=== PATIENT | male | born 1995 | race American Indian/Alaskan Native ===

== ENCOUNTER 2021-06-19 10:52 | Emergency (ER) | payer SELFPAY ==
[2021-06-19] MEDS ORDERED: ZIPRASIDONE MESYLATE 20 MG VIAL IM ONE ×2 (11:01→11:04)
[2021-06-19] MEDS ORDERED: LORazepam 2 MG/ML VIAL IM ONE (11:01)
[2021-06-19] MEDS ORDERED: TETANUS,DIPH,PERTUSS(ACELL) VACCINE 0.5 ML SYRINGE IM ONE (11:01)
--- NOTE | 2021-06-19 11:15 | Emergency Department Report ---
ED Altered Mental Status HPI - General Chief Complaint: Altered Mental Status Stated Complaint: HEAD INJURY/AMS/ IN CUSTODY Time Seen by Provider: 06/19/21 11:01 Source: police Mode of arrival: Ambulatory Limitations: Altered Mental Status - History of Present Illness Initial Comments: 25-year-old male presents to ED for evaluation. Patient was found inside an apartment that was under construction. Patient was found by construction workers. Patient apparently had a hammer in his hand and started banging on the countertops. Police was called. Patient left the apartment and went outside. He was chasing a car with the hammer and his hand. Patient also hit himself in the head multiple times with the hammer. tactical/mobile watch officer reports patient has had previous arrest in the past for trespassing. Patient was found in a [employer] parking lot asleep with a Bible in someone else's car. Unknown if patient has previous psychiatric diagnosis. MD Complaint: altered mental status -: unknown Severity: severe Consistency of Symptoms: constant Context: unknown - Related Data Allergies Allergy/AdvReac Type Severity Reaction Status Date / Time No Known Allergies Allergy Verified 06/20/21 13:27 ED Review of Systems ROS: Stated complaint: HEAD INJURY/AMS/ IN CUSTODY Other details as noted in HPI Comment: Unobtainable due to pts medical conditions ED Physical Exam - General Limitations: Altered Mental Status General appearance: alert - Head Head exam: Present: other (Contusions present to forehead with superficial laceration, approx 3 cm, in the middle of forehead) - Eye Eye exam: Present: normal appearance, PERRL, EOMI - ENT ENT exam: Present: mucous membranes moist - Neck Neck exam: Present: normal inspection - Respiratory Respiratory exam: Present: normal lung sounds bilaterally. Absent: respiratory distress - Cardiovascular Cardiovascular Exam: Present: normal rhythm, tachycardia - GI/Abdominal GI/Abdominal exam: Present: soft. Absent: distended - Extremities Exam Extremities exam: Present: normal inspection - Neurological Exam Neurological exam: Present: alert, altered, other (Moves all extremities) - Psychiatric Psychiatric exam: Present: agitated - Skin Skin exam: Present: warm, dry, intact, normal color ED Course Vital Signs 06/19/21 06/19/21 06/19/21 11:04 11:16 12:22 Temperature Pulse Rate Respiratory Rate Blood Pressure 123/89 151/78 114/60 Blood Pressure [Right] O2 Sat by Pulse 100 100 Oximetry 06/19/21 06/19/21 06/20/21 12:24 20:12 02:10 Temperature 98.6 F 98.7 F 98.4 F Pulse Rate 86 60 Respiratory 18 16 Rate Blood Pressure Blood Pressure 111/63 107/66 [Right] O2 Sat by Pulse 100 99 Oximetry 06/20/21 06/20/21 09:02 11:08 Temperature 97.6 F Pulse Rate 68 Respiratory 16 16 Rate Blood Pressure Blood Pressure 122/75 [Right] O2 Sat by Pulse 100 100 Oximetry - Reevaluation(s) Reevaluation #1: 06/19/21 11:15 Patient not answering any questions. He was yelling and screaming "superman" and "Gabino." Unsure if he is speaking in another language, however some words are not recognizable. Patient given Geodon and Ativan for agitation. - Laceration /Wound Repair Face Wound Location: face Wound Length (cm): 3 Wound's Depth, Shape: superficial Wound Explored: clean Irrigated w/ Saline (ccs): 30 Wound Repaired With: Dermabond Layer Closure?: No Sterile Dressing Applied?: No - Lab Data Result diagrams: 06/19/21 11:34 06/19/21 11:34 Lab Results 06/19/21 06/19/21 06/19/21 Range/Units 08:38 11:34 11:34 WBC 5.2 (4.5-11.0) K/mm3 RBC 5.19 H (3.65-5.03) M/mm3 Hgb 13.5 (11.8-15.2) gm/dl Hct 41.1 (35.5-45.6) % MCV 79 L (84-94) fl MCH 26 L (28-32) pg MCHC 33 (32-34) % RDW 15.3 H (13.2-15.2) % Plt Count 276 (140-440) K/mm3 Lymph % (Auto) 20.6 (13.4-35.0) % [place] % (Auto) 8.9 H (0.0-7.3) % Eos % (Auto) 1.0 (0.0-4.3) % Baso % (Auto) 0.7 (0.0-1.8) % Lymph # (Auto) 1.1 L (1.2-5.4) K/mm3 [place] # (Auto) 0.5 (0.0-0.8) K/mm3 Eos # (Auto) 0.0 (0.0-0.4) K/mm3 Baso # (Auto) 0.0 (0.0-0.1) K/mm3 Seg Neutrophils % 68.8 (40.0-70.0) % Seg Neutrophils # 3.6 (1.8-7.7) K/mm3 Sodium 142 (137-145) mmol/L Potassium 3.4 L (3.6-5.0) mmol/L Chloride 101.1 (98-107) mmol/L Carbon Dioxide 20 L (22-30) mmol/L Anion Gap 24 mmol/L BUN 6 L (9-20) mg/dL Creatinine 1.0 (0.8-1.3) mg/dL Estimated GFR > 60 ml/min BUN/Creatinine Ratio 6 % Glucose 134 H (75-100) mg/dL Calcium 9.9 (8.4-10.2) mg/dL Total Bilirubin 0.60 (0.1-1.2) mg/dL Direct Bilirubin < 0.2 (0-0.2) mg/dL Indirect Bilirubin 0.4 mg/dL AST 20 (5-40) units/L ALT 11 (7-56) units/L Alkaline Phosphatase 66 (35-129) units/L Total Protein 7.7 (6.3-8.2) g/dL Albumin 4.8 (3.9-5) g/dL Albumin/Globulin Ratio 1.7 % Urine Color (Yellow) Urine Turbidity (Clear) Urine pH (5.0-7.0) Ur Specific [place] (1.003-1.030) Urine Protein (Negative) mg/dL Urine Glucose (UA) (Negative) mg/dL Urine Ketones (Negative) mg/dL Urine Blood (Negative) Urine Nitrite (Negative) Urine Bilirubin (Negative) Urine Urobilinogen (<2.0) mg/dL Ur Leukocyte Esterase (Negative) Urine WBC (Auto) (0.0-6.0) /HPF Urine RBC (Auto) (0.0-6.0) /HPF U Epithel Cells (Auto) (0-13.0) /HPF Urine Mucus /HPF Salicylates (2.8-20.0) mg/dL Urine Opiates Screen Urine Methadone Screen Acetaminophen (10.0-30.0) ug/mL Ur Barbiturates Screen Ur Phencyclidine Scrn Ur Amphetamines Screen U Benzodiazepines Scrn Urine Cocaine Screen U Marijuana (THC) Screen Drugs of Abuse Note Plasma/Serum Alcohol (0-0.07) % Coronavirus (PCR) Negative (Negative) 06/19/21 06/19/21 06/19/21 Range/Units 11:34 11:34 11:34 WBC (4.5-11.0) K/mm3 RBC (3.65-5.03) M/mm3 Hgb (11.8-15.2) gm/dl Hct (35.5-45.6) % MCV (84-94) fl MCH (28-32) pg MCHC (32-34) % RDW (13.2-15.2) % Plt Count (140-440) K/mm3 Lymph % (Auto) (13.4-35.0) % [place] % (Auto) (0.0-7.3) % Eos % (Auto) (0.0-4.3) % Baso % (Auto) (0.0-1.8) % Lymph # (Auto) (1.2-5.4) K/mm3 [place] # (Auto) (0.0-0.8) K/mm3 Eos # (Auto) (0.0-0.4) K/mm3 Baso # (Auto) (0.0-0.1) K/mm3 Seg Neutrophils % (40.0-70.0) % Seg Neutrophils # (1.8-7.7) K/mm3 Sodium (137-145) mmol/L Potassium (3.6-5.0) mmol/L Chloride (98-107) mmol/L Carbon Dioxide (22-30) mmol/L Anion Gap mmol/L BUN (9-20) mg/dL Creatinine (0.8-1.3) mg/dL Estimated GFR ml/min BUN/Creatinine Ratio % Glucose (75-100) mg/dL Calcium (8.4-10.2) mg/dL Total Bilirubin (0.1-1.2) mg/dL Direct Bilirubin (0-0.2) mg/dL Indirect Bilirubin mg/dL AST (5-40) units/L ALT (7-56) units/L Alkaline Phosphatase (35-129) units/L Total Protein (6.3-8.2) g/dL Albumin (3.9-5) g/dL Albumin/Globulin Ratio % Urine Color (Yellow) Urine Turbidity (Clear) Urine pH (5.0-7.0) Ur Specific [place] (1.003-1.030) Urine Protein (Negative) mg/dL Urine Glucose (UA) (Negative) mg/dL Urine Ketones (Negative) mg/dL Urine Blood (Negative) Urine Nitrite (Negative) Urine Bilirubin (Negative) Urine Urobilinogen (<2.0) mg/dL Ur Leukocyte Esterase (Negative) Urine WBC (Auto) (0.0-6.0) /HPF Urine RBC (Auto) (0.0-6.0) /HPF U Epithel Cells (Auto) (0-13.0) /HPF Urine Mucus /HPF Salicylates < 0.3 L (2.8-20.0) mg/dL Urine Opiates Screen Urine Methadone Screen Acetaminophen 5.0 L (10.0-30.0) ug/mL Ur Barbiturates Screen Ur Phencyclidine Scrn Ur Amphetamines Screen U Benzodiazepines Scrn Urine Cocaine Screen U Marijuana (THC) Screen Drugs of Abuse Note Plasma/Serum Alcohol < 0.01 (0-0.07) % Coronavirus (PCR) (Negative) 06/19/21 06/19/21 Range/Units Unknown Unknown WBC (4.5-11.0) K/mm3 RBC (3.65-5.03) M/mm3 Hgb (11.8-15.2) gm/dl Hct (35.5-45.6) % MCV (84-94) fl MCH (28-32) pg MCHC (32-34) % RDW (13.2-15.2) % Plt Count (140-440) K/mm3 Lymph % (Auto) (13.4-35.0) % [place] % (Auto) (0.0-7.3) % Eos % (Auto) (0.0-4.3) % Baso % (Auto) (0.0-1.8) % Lymph # (Auto) (1.2-5.4) K/mm3 [place] # (Auto) (0.0-0.8) K/mm3 Eos # (Auto) (0.0-0.4) K/mm3 Baso # (Auto) (0.0-0.1) K/mm3 Seg Neutrophils % (40.0-70.0) % Seg Neutrophils # (1.8-7.7) K/mm3 Sodium (137-145) mmol/L Potassium (3.6-5.0) mmol/L Chloride (98-107) mmol/L Carbon Dioxide (22-30) mmol/L Anion Gap mmol/L BUN (9-20) mg/dL Creatinine (0.8-1.3) mg/dL Estimated GFR ml/min BUN/Creatinine Ratio % Glucose (75-100) mg/dL Calcium (8.4-10.2) mg/dL Total Bilirubin (0.1-1.2) mg/dL Direct Bilirubin (0-0.2) mg/dL Indirect Bilirubin mg/dL AST (5-40) units/L ALT (7-56) units/L Alkaline Phosphatase (35-129) units/L Total Protein (6.3-8.2) g/dL Albumin (3.9-5) g/dL Albumin/Globulin Ratio % Urine Color Yellow (Yellow) Urine Turbidity Clear (Clear) Urine pH 6.0 (5.0-7.0) Ur Specific [place] 1.008 (1.003-1.030) Urine Protein <15 mg/dl (Negative) mg/dL Urine Glucose (UA) Neg (Negative) mg/dL Urine Ketones Neg (Negative) mg/dL Urine Blood Mod (Negative) Urine Nitrite Neg (Negative) Urine Bilirubin Neg (Negative) Urine Urobilinogen < 2.0 (<2.0) mg/dL Ur Leukocyte Esterase Neg (Negative) Urine WBC (Auto) 2.0 (0.0-6.0) /HPF Urine RBC (Auto) 14.0 (0.0-6.0) /HPF U Epithel Cells (Auto) 1.0 (0-13.0) /HPF Urine Mucus Few /HPF Salicylates (2.8-20.0) mg/dL Urine Opiates Screen Negative Urine Methadone Screen Negative Acetaminophen (10.0-30.0) ug/mL Ur Barbiturates Screen Negative Ur Phencyclidine Scrn Negative Ur Amphetamines Screen Negative U Benzodiazepines Scrn Negative Urine Cocaine Screen Negative U Marijuana (THC) Screen Negative Drugs of Abuse Note Disclamer Plasma/Serum Alcohol (0-0.07) % Coronavirus (PCR) (Negative) - Radiology Data Radiology results: report reviewed, image reviewed - Medical Decision Making 24-year-old male presents to ED with acute psychosis. Patient was found inside of an apartment that was under construction. Patient was banging on a countertop with a hammer, and then hit himself in the head with a hammer as well. Upon arrival in the ED patient was agitated, not following directions, chanting words over and over. Geodon and Ativan were given. CT head negative for any acute findings. Patient has superficial laceration that was repaired with Dermabond. Labs are unremarkable. Urine drug screen is negative. 1013 has been signed. Patient is medically clear for psychiatric evaluation. Will dispo per psych. - Differential Diagnosis Schizophrenia, drug-induced psychosis, intracranial abnormality Critical care attestation.: If time is entered above; I have spent that time in minutes in the direct care of this critically ill patient, excluding procedure time. ED Disposition Clinical Impression: Acute psychosis, Acute head injury, Forehead laceration Disposition: [address] [place] [address] Is pt being admited?: No Condition: Stable Referrals: PRIMARY CARE, [Primary Care Provider] - 3-5 Days
[2021-06-19] MEDS ORDERED: IPRATROPIUM 0.02% NEBU 2.5 ML IH ONE (12:00)
[2021-06-19] MEDS ORDERED: ALBUTEROL 2.5 MG/3 ML NEBU IH ONE (12:00)
[2021-06-19 12:35] LABS: Basophils % (Auto) 0.7 % (0.0-1.8); Hematocrit 41.1 % (35.5-45.6); Hemoglobin 13.5 gm/dl (11.8-15.2); Lymphocytes # (Auto) 1.1 K/mm3 (1.2-5.4); Lymphocytes % (Auto) 20.6 % (13.4-35.0); Mean Corpuscular HGB Conc 33 % (32-34); Mean Corpuscular Volume 79 fl (84-94); Monocytes # (Auto) 0.5 K/mm3 (0.0-0.8); Monocytes % (Auto) 8.9 % (0.0-7.3); Platelet Count 276 K/mm3 (140-440); Red Blood Count 5.19 M/mm3 (3.65-5.03); Red Cell Distribution Width 15.3 % (13.2-15.2)
--- NOTE | 2021-06-19 12:35 | Cat Scan Report ---
CT head/brain wo con INDICATION: AMS, head trauma. TECHNIQUE: Routine CT head. All CT scans at this location are performed using CT dose reduction for A LUZ by means of automated exposure control. COMPARISON: None. FINDINGS: Intracranial: Mosley-white matter differentiation is maintained. No intracranial hemorrhage. No extra a xial collection. No hydrocephalus. No herniation. Sinuses: Paranasal sinuses and mastoid air cells are essentially clear. Orbits: Globes are intact. Calvarium: No acute fracture. IMPRESSION: 1. No acute intracranial abnormality. Signer Name: Freedom Wilson MD Signed: 06/19/2021 12:30 PM Workstation Name: [id number]
[2021-06-19 12:40] LABS: Alanine Aminotransferase 11 units/L (7-56); Albumin 4.8 g/dL (3.9-5); BUN/Creatinine Ratio 6; Blood Urea Nitrogen 6 mg/dL (9-20); Calcium 9.9 mg/dL (8.4-10.2); Hemolysis Index 6
[2021-06-19 12:42] LABS: Bilirubin,Direct < 0.2 mg/dL (0-0.2)
[2021-06-19 13:34] LABS: Bilirubin,Urine NEG (Negative); Blood,Urine MOD (Negative); Color,Urine Yellow (Yellow); Mucus,Urine FEW /HPF; Protein,Urine <15 mg/dL mg/dL (Negative); Urobilinogen,Urine < 2.0 mg/dL (<2.0)
[2021-06-19 13:41] LABS: Amphetamine Screen,Urine Negative; Benzodiazepines Screen,Urine Negative; Cannabinoid Screen,Urine Negative; Cocaine Screen,Urine Negative; Methadone Screen,Urine Negative; Opiate Screen,Urine Negative
[2021-06-20 09:04] VITALS: BP 122/75
--- NOTE | 2021-06-20 09:47 | Consultation ---
History of Present Illness - Reason for Consult Consult date: 06/20/21 Reason for consult: psychsis - History of Present Psychiatric Illness Per ER Note: 25-year-old male presents to ED for evaluation. Patient was found inside an apartment that was under construction. Patient was found by construction workers. Patient apparently had a hammer in his hand and started banging on the countertops. Police was called. Patient left the apartment and went outside. He was chasing a car with the hammer and his hand. Patient also hit himself in the head multiple times with the hammer. aoc director intelligence officer reports patient has had previous arrest in the past for trespassing. Patient was found in a [employer] parking lot asleep with a Bible in someone else's car. Unknown if patient has previous psychiatric diagnosis. Mae Heart is a 25y/o male I evaluated today. During my evaluation, the patient is calm, cooperative and polite. The patient says he was brought in by the police because he got into an altercation with a construction equipment operator. He says "and also for hitting my head." The patient doesn't make a lot of eye contact. When I ask him about this he smiles and replies "I'm tired and still trying to wake up, and you're pretty." He denies any diagnoses of psych history but states he saw a therapist in the past for "stress." The patient denies being on any medications for psych disorders. He says he has "asthma and takes an inhaler." He denies any illicit drug use, alcohol or excessive nicotine use. The patient says "sometimes I smoke black and milds." He denies SI/HI. When asking about hallucinations, the patient states "sometimes." He says "sometimes I hear a voice saying it's okay." He says he lives with his god-mother. PAST PSYCHIATRIC HISTORY Diagnoses: Denies Suicide attempts or Self-harm behavior: No Prior psychiatric hospitalizations: Yes Substance Abuse history: Denies Previous psychiatric medications tried: Denies Outpatient treatment: Denies PAST MEDICAL HISTORY: None reported Family Psychiatric History: None reported or documented SOCIAL HISTORY Marital Status: Single Living Arrangements: with god-mother Employment Status: Unemployed Access to guns/weapons: None report Education: High school History of Abuse: Denies Legal History: None reported REVIEW OF SYSTEMS Constitutional: Negative for weight loss ENT: Negative for stridor Respiratory: Negative for cough or hemoptysis All other systems reviewed and are negative MENTAL STATUS EXAMINATION General Appearance and Behavior: Age appropriate, good hygiene, wearing appropriate clothes, calm and cooperative Cooperation: cooperative Psychomotor Behavior: Psychomotor normal Mood: depressed Affect and affective range: congruent with stated mood Thought Process: goal directed Thought Content: hallucinations Speech: Normal rate, volume and rhythm Suicidal Ideation: Denies Homicidal Ideation: Denies HI Hallucinations: auditory, "sometimes" Delusions: None elicited Impulse Control: Impaired Insight and Judgment: Limited insight and judgment Memory: Limited Attention: Limited Orientation: Alert, oriented Assessment and Plan (1)Psychosis TREATMENT PLAN 1013 Risperidone 0.25mg po BID Trazodone 50mg po qhs Sitter: per primary Medical: per primary Disposition: Recommend acute psychiatric inpatient treatment Will follow. Thanks Case staffed with Dr. Calderon. Medications and Allergies Allergies Allergy/AdvReac Type Severity Reaction Status Date / Time Unable to Assess Allergy Unverified 06/19/21 11:01 Mental Status Exam - Vital signs Last Vital Signs Temp 97.6 F 06/20/21 09:02 Pulse 68 06/20/21 09:02 Resp 16 06/20/21 09:02 BP 122/75 06/20/21 09:02 Pulse Ox 100 06/20/21 09:02 Results Result Diagrams: 06/19/21 11:34 06/19/21 11:34 Abnormal lab results 06/19/21 06/19/21 06/19/21 Range/Units 11:34 11:34 11:34 RBC 5.19 H (3.65-5.03) M/mm3 MCV 79 L (84-94) fl MCH 26 L (28-32) pg RDW 15.3 H (13.2-15.2) % [place] % (Auto) 8.9 H (0.0-7.3) % Lymph # (Auto) 1.1 L (1.2-5.4) K/mm3 Potassium 3.4 L (3.6-5.0) mmol/L Carbon Dioxide 20 L (22-30) mmol/L BUN 6 L (9-20) mg/dL Glucose 134 H (75-100) mg/dL Salicylates < 0.3 L (2.8-20.0) mg/dL Acetaminophen (10.0-30.0) ug/mL 06/19/21 Range/Units 11:34 RBC (3.65-5.03) M/mm3 MCV (84-94) fl MCH (28-32) pg RDW (13.2-15.2) % [place] % (Auto) (0.0-7.3) % Lymph # (Auto) (1.2-5.4) K/mm3 Potassium (3.6-5.0) mmol/L Carbon Dioxide (22-30) mmol/L BUN (9-20) mg/dL Glucose (75-100) mg/dL Salicylates (2.8-20.0) mg/dL Acetaminophen 5.0 L (10.0-30.0) ug/mL All other labs normal.
--- NOTE | 2021-06-20 09:54 | Event Note ---
Date: 06/20/21 Patient is a 1013. Rested comfortably overnight with no issues. Still waiting for placement. Mental health assessment note is as follows: Psychiatric Consult Note Patient Name: BHUMIKA HEART Date of : 89 Patient Status: Emergency Emergency Provider: JUNAID NATARAJAN Date: 06/20/21 09:46 Initialization Date: 06/20/21 09:46 History of Present Illness - Reason for Consult Consult date: 06/20/21 Reason for consult: psychsis - History of Present Psychiatric Illness Per ER Note: 25-year-old male presents to ED for evaluation. Patient was found inside an apartment that was under construction. Patient was found by construction workers. Patient apparently had a hammer in his hand and started banging on the countertops. Police was called. Patient left the apartment and went outside. He was chasing a car with the hammer and his hand. Patient also hit himself in the head multiple times with the hammer. chief information officer reports patient has had previous arrest in the past for trespassing. Patient was found in a [employer] parking lot asleep with a Bible in someone else's car. Unknown if patient has previous psychiatric diagnosis. Bhumika Heart is a 25y/o male I evaluated today. During my evaluation, the patient is calm, cooperative and polite. The patient says he was brought in by the police because he got into an altercation with a construction engineer. He says "and also for hitting my head." The pa PAST PSYCHIATRIC HISTORY Diagnoses: schizophrenia Suicide attempts or Self-harm behavior: No Prior psychiatric hospitalizations: Yes Substance Abuse history: Meth, lita Previous psychiatric medications tried: could not recall Outpatient treatment: Denies PAST MEDICAL HISTORY: None reported Family Psychiatric History: None reported or documented SOCIAL HISTORY Marital Status: Single Living Arrangements: Homeless Employment Status: Unemployed Access to guns/weapons: None report Education: High school History of Abuse: Denies Legal History: None reported REVIEW OF SYSTEMS Constitutional: Negative for weight loss ENT: Negative for stridor Respiratory: Negative for cough or hemoptysis All other systems reviewed and are negative MENTAL STATUS EXAMINATION General Appearance and Behavior: Age appropriate, good hygiene, wearing appr opriate clothes, calm and cooperative Cooperation: cooperative Psychomotor Behavior: Psychomotor normal Mood: depressed Affect and affective range: congruent with stated mood Thought Process: circumstantial Thought Content: hallucinations, SI Speech: Normal rate, volume and rhythm Suicidal Ideation: Yes Homicidal Ideation: Denies HI Hallucinations: A/V Delusions: None elicited Impulse Control: Impaired Insight and Judgment: Limited insight and judgment Memory: Limited Attention: Limited Orientation: Alert, oriented Assessment and Plan (1)Schizophrenia TREATMENT PLAN 1013 Risperidone 0.25mg po BID Prozac 20mg po daily Trazodone 50mg po qhs Sitter: per primary Medical: per primary Disposition: Will follow. Thanks Case staffed with Dr. Calderon.
[2021-06-20] MEDS ORDERED: risperiDONE 0.25 MG TAB PO SCH (10:00)
[2021-06-20] MEDS ORDERED: traZODone 50 MG TAB PO SCH (22:00)
== END 2021-06-20 19:39 ==
LOC: EEVIPCON 10:52 → ED 10:52
DX: S01.81XA Laceration without foreign body of other part of head, initial encounter (principal); F23 Brief psychotic disorder; Z20.822 Contact with and (suspected) exposure to COVID-19; Z79.899 Other long term (current) drug therapy; W22.8XXA Striking against or struck by other objects, initial encounter; Y93.89 Activity, other specified; Y92.89 Other specified places as the place of occurrence of the external cause; Y99.8 Other external cause status
CPT/HCPCS: 12013; 36415; 70450; 80048; 80076; 80307; 81001; 85025; 90471; 90715; 96372; 99285; J2060; J3486; U0003; 80320; G0480